=== PATIENT | male | born 1950 | race Native Hawaiian/Other Pacific Islander ===

== ENCOUNTER 2020-11-13 22:29 | Emergency (ER) | payer BC ==
[~2020-11-13] VITALS: Ht 175.3 cm; Wt 72.6 kg
[2020-11-14 00:14] LABS: POTASSIUM 4.4 mmol/L (3.6-5.2)
[2020-11-14 00:51] LABS: PLATELET COUNT 169 K/uL (142-355)
[2020-11-14 02:57] VITALS: TEMP 98.5
[2020-11-14 03:00] VITALS: BP 111/69
== END 2020-11-14 01:55 | disposition short-term general hospital (02) ==
LOC: ED 22:29
PROVIDERS: Hospitalist
PROC: 0D9670Z Drainage of Stomach with Drainage Device, Via Natural or Artificial Opening (ICD-10-PCS; principal; 2020-11-13)
DX: K56.699 Other intestinal obstruction unspecified as to partial versus complete obstruction (principal); R10.13 Epigastric pain
CPT/HCPCS: 43754; 80053; 80320; 82150; 83605; 83690; 84484; 85027; 93005; 96360; 96361; 96365; 96375; 99285; J1170; J2405; J2543; Q9963

== ENCOUNTER 2021-02-20 07:07 | Emergency (ER) | payer BC ==
[2021-03-05 09:40] LABS: PLATELET COUNT 137 K/uL (142-355)
[2021-03-05 09:41] LABS: POTASSIUM 4.3 mmol/L (3.6-5.2)
== END 2021-02-20 13:25 | disposition home or self-care (01) ==
LOC: ED 07:07
PROVIDERS: Emergency Medicine
DX: K35.890 Other acute appendicitis without perforation or gangrene (principal)
CPT/HCPCS: 80053; 81000; 82150; 83690; 85027; 96360; 96365; 96375; 99284; J2270; J2405; J2543; Q9963